=== PATIENT | female | born 1960 | race Caucasian/White ===

== ENCOUNTER 2020-02-08 06:33 | Day surgery (SDC) | payer OTHER ==
--- OUTSIDE RECORDS SUMMARY | 2020-02-08 06:36 | XMS REPORT | Continuity of Care Document ---
:1960 Author Organization [facility] t Address [address] [place] [address] Dr. Garcia. [address] [place] [address] Care Team Providers Name Role Phone Doctor Unassigned, Name Attending Clinician Unavailable Problems This patient has no known problems. Allergies, Adverse Reactions, Alerts This patient has no known allergies or adverse reactions. Medications This patient has no known medications. Procedures This patient has no known procedures. Encounters Start End Encounter Admission Attending Care Care Encounter Source Date/Time Date/Time Type Type Clinicians Facility Department ID 2020-01-29 2020-01-29 Orders Doctor KIMBERLY [id number] 00:00:00 00:00:00 Only Unassigned, PADMINI [id number] [place] [facility] [id number] Results This patient has no known results.
[2020-02-08] MEDS ORDERED: SILVER NITRATE 1 APPL TOP ONE (06:54)
[2020-02-08] MEDS ORDERED: LIDOCAINE 1% W/EPI 1:100,000 MDV 50 ML VIAL ONE (06:54)
[2020-02-08] MEDS ORDERED: NA CHLORIDE 0.9% 1,000 ML ONE (06:55)
[2020-02-08] MEDS ORDERED: Ringers Lactate 1,000 ML IV ONE (07:19)
[2020-02-08] MEDS ORDERED: LIDOCAINE 1% MPF 5 ML VIAL ONE (07:23)
[2020-02-08] MEDS ORDERED: MIDAZOLAM HCL 2 MG/2 ML INJ ONE (07:23)
[2020-02-08] MEDS ORDERED: FENTANYL CITR 100 MCG/2 ML ONE (07:23)
[2020-02-08] MEDS ORDERED: propofoL 200 MG/20 ML VIAL IV ONE (07:23)
[2020-02-08] MEDS ORDERED: dexAMETHasone 10 MG/ML VIAL ONE (08:07)
[2020-02-08] MEDS ORDERED: KETOROLAC 30 MG/ML INJ ONE (08:08)
[2020-02-08] MEDS ORDERED: ONDANSETRON 4 MG/2 ML VIAL ONE (08:08)
[2020-02-08] MEDS ORDERED: PROMETHAZINE INJ 25 MG/ML AMP IV PRN (08:19)
[2020-02-08] MEDS ORDERED: KETOROLAC 30 MG/ML INJ IV PRN (08:19)
--- NOTE | 2020-02-08 08:19 | P.BOP ---
Preoperative diagnosis: Post menopausal bleeding Postoperative diagnosis: same Primary procedure: hysteroscopy, d&c Estimated blood loss: Less than 5ml Specimen: endometrial currettings Anesthesia: General Complications: None Transferred to: Recovery Room Condition: Good
--- NOTE | 2020-02-08 08:40 | OP ---
Surgeon: Malik Nelson MD Anesthesiologist: Dr. Harrell and Dr. Angel Kulkarni. Preoperative Diagnosis: Postmenopausal bleeding. Procedure: Hysteroscopy, dilatation and curettage of the uterine endometrium. Postoperative Diagnosis: Postmenopausal bleeding. Description Of Procedure: After satisfactory level of general anesthesia was obtained, the patient w as prepped and draped in the usual fashion for vaginal surgery in high leg holders. A weighted specu lum was placed in posterior vagina. Cervix visualized and grasped with single-tooth tenaculum. Afte r minimal dilation of the cervix, hysteroscope introduced. The endometrial cavity was normal in appe arance other than atrophic changes. There were no polyps or evidence of submucosal leiomyomata or ot her abnormalities. Hysteroscope was removed. The endometrium was curetted with Avery curette produc tive of minimal to no tissue. Patient was awakened and taken to recovery room in satisfactory condit ion. KATHIA/SYBIL Voice ID: [id number] Report ID: [id number]
[2020-02-08 08:49] VITALS: O2SAT 100
--- NOTE | 2020-02-08 08:55 | DS ---
Final Hospital Discharge Diagnosis: Postmenopausal bleeding. Complications: None. Procedure: Hysteroscopy, dilatation and curettage of the uterine endometrium. Hospital Course: The patient is a 59-year-old female, who admitted for evaluation of postmenopausal bleeding. She underwent hysteroscopy and dilatation and curettage. She was to be seen back in my office in 2 weeks with the usual post hysteroscopy activity restrictions. No lab wor k performed. She will be seen back in my office in 2 weeks. KATHIA/SYBIL Voice ID: [id number] Report ID: [id number]
[2020-02-08 09:10] VITALS: BP 142/79; TEMP 96.6
[2020-02-08] MEDS ORDERED: IBUPROFEN 400 MG TAB ONE (09:13)
--- NOTE | 2020-02-18 05:57 | PREOPHP ---
Date of Admission: 02/08/2020 History Of Present Illness: The patient is a 59-year-old female who has had a coup le of episodes of postmenopausal bleeding. Because of this, she is scheduled for hysteroscopy, D and C for more complete evaluation. Past medical history includes 5 prior pregnancies. She is a gravid a 5, para 2-0-3-1, who is status post several significant episodes of bleeding. She has undergone 2 endometrial biopsies. These were benign, but because of bleeding scheduled fo r a fluoroscopy. Past Medical History: Includes childbirths, breast augmentation surgery. Current Medications: Include Effexor and a statin. Allergies: SHE HAS NO KNOWN ALLERGIES. Social History: Does not smoke. Family History: Noncontributory. Review of Systems: She reports no recent cough, cold, fever, or chills. No recent nausea or vomiting. No breast knots or lumps. No bowel or bladder issues. She is not currently having any bleeding. She denies any bow el issues. Physical Examination: General: Reveals a pleasant female, in no apparent distress. Neck: Supple without adenopathy or thyromegaly. Lungs: Clear. Cardiac: Regular rate and rhythm without murmurs. Breasts: Not examined. Abdomen: Nontender without organosplenomegaly. No obvious lesions. Bimanual, no abnormalities. Extremities: No cyanosis, clubbing. Impression: History of postmenopausal bleeding. Plan: The patient will undergo hysteroscopy and dilatation and curettage. She is scheduled for a pe lvic ultrasound tomorrow to look for tubal abnormalities and evidence of leiomyomata. Risks and bene fits of surgery were discussed and she has had opportunity to review the . MPG/MODL Voice ID: [id number]
== END 2020-02-08 09:28 | disposition home or self-care (01) ==
LOC: OR 06:33
PROVIDERS: ATTEND Specialist
PROC: 0UJD8ZZ Inspection of Uterus and Cervix, Via Natural or Artificial Opening Endoscopic (ICD-10-PCS; 2020-02-08)
PROC: 0UDB7ZX Extraction of Endometrium, Via Natural or Artificial Opening, Diagnostic (ICD-10-PCS; principal; 2020-02-08 07:30)
DX: N95.0 Postmenopausal bleeding (principal); Z20.828 Contact with and (suspected) exposure to other viral communicable diseases
CPT/HCPCS: 88305; 58558; U0002; J2704; J2250; J1100; J7120; J7030; J2405; J3010